=== PATIENT | female | born 1970 | race Caucasian/White ===

== ENCOUNTER 2024-05-06 08:26 | Emergency (ER) | payer OTHER, SELFPAY ==
[2024-05-06 08:30] VITALS: BP 123/75; PULSE 60; RESP 16; TEMP 36.9; O2SAT 100; BMI 31.4
--- NOTE | 2024-05-06 08:39 | XR_ITS ---
Examination: PA chest single view TECHNIQUE: Upright PA chest single view Exam date and time: May 06, 2024 at 0923 hours INDICATIONS: Shortness of breath beginning 7:00 AM this morning FINDINGS: Normal heart size Lungs are clear. The osseous structures are intact with mild thoracic dextroscoliosis IMPRESSION: No active disease
--- NOTE | 2024-05-06 08:39 | EKG_ITS ---
[facility] Test Date: 2024-05-06 Pat Name: THELMA COYLE Department: Room: - Gender: Female No Experience: : 1970 Requested By: Berta Perry ([facility]) Catherine Order Number: [id number] Reading MD: Berta Perry ([facility]) Catherine Measurements Intervals [place] Rate: 53 P: 28 ME: 156 QRS: 51 QRSD: 90 T: 43 QT: 433 QTc: 407 Interpretive Statements SINUS BRADYCARDIA Compared to ECG 02/06/2022 22:13:59 Sinus rhythm no longer present /store/S0/[id number]/ecg/[id number].pdf
--- NOTE | 2024-05-06 08:44 | PD.EDRME ---
Rapid Medical Screening Exam RME Arrival date/time: 05/06/24 08:26 54-year-old female presents to the emergency department with complaints of acute chest pain worsening with deep inspiration that began this a.m. upon awakening. I have greeted and performed a focused initial assessment of this patient. Initial appropriate labs ordered at this time. A comprehensive ED assessment and evaluation of the patient and analysis of all test and completion of medical decision making process will be conducted by additional ED provider. Chief Complaint: Chest Pain Time Seen by Provider: 05/06/24 08:33 Vital signs: Vital Signs Temperature 98.5 F 05/06/24 08:30 Pulse Rate 60 05/06/24 08:30 Respiratory Rate 16 05/06/24 08:30 Blood Pressure 123/75 05/06/24 08:30 Pulse Oximetry (%) 100 05/06/24 08:30 Oxygen Delivery Method Room Air 05/06/24 08:30
[2024-05-06 09:08] LABS: Basophils % (Auto) 1 % (0-2.5); Eosinophils # (Auto) 0.1 Thou/mm3 (0.0-0.5); Eosinophils % (Auto) 3 % (0-10); Hemoglobin 14.2 g/dL (12.0-16.0); Immature Granulocytes % (Auto) 0 % (0-0); Lymphocytes # (Auto) 0.9 Thou/mm3 (1.0-4.8); Lymphocytes % (Auto) 22 % (10-50); Mean Corpuscular Hemoglobin 29.1 pg (25.0-35.0); Mean Corpuscular Volume 88 fL (80-100); Monocytes # (Auto) 0.4 Thou/mm3 (0.0-0.8); Monocytes % (Auto) 10 % (0-12); Neutrophils # (Auto) 2.6 Thou/mm3 (1.8-7.7); Neutrophils % (Auto) 65 % (37-80); Nucleated Red Blood Cell % 0 /100 WBC (0); Platelet Count 223 Thou/mm3 (140-440); RDW Standard Deviation 44.3 fL (36.4-46.3); Red Blood Count 4.88 Miln/mm3 (4.00-5.20); White Blood Count 4.1 Thou/mm3 (3.6-11.0)
[2024-05-06 09:26] LABS: INR 0.9 (0.9-1.3); Partial Thromboplastin Time 26.4 Seconds (22.0-36.0); Prothrombin Time 10.4 Seconds (9.0-12.2)
[2024-05-06 10:09] LABS: Alanine Aminotransferase 16 U/L (10-49); Albumin, Serum 4.7 gm/dL (3.5-5.0); Alkaline Phosphatase 85 U/L (46-116); Anion Gap 6 (7-16); Aspartate Amino Transferase 22 U/L (0-34); BUN/Creatinine Ratio 14 Ratio (12-20); Blood Urea Nitrogen 14 mg/dL (9-23); Calcium 9.7 mg/dL (8.3-10.6); Calcium (Corrected) 9.7 mg/dL (8.5-10.1); Carbon Dioxide 27.3 mMol/L (20.0-31.0); Chloride 107 mMol/L (98-107); Estimated Creatinine Clearance 70.4 mL/min (>60); Globulin 2.3 gm/dL (2.3-3.5); Glucose 93 mg/dL (74-106); Lipase 33 U/L (12-53); Magnesium 2.2 mg/dL (1.6-2.6); Osmolality,Calculated 279 (275-295); Sodium 140 mMol/L (136-145); Troponin I < 0.002 ng/mL (0.0-0.045); eGFR > 60 See Note
--- NOTE | 2024-05-06 10:35 | PD.EDCHEST ---
ED Chest Pain RME/HPI General Chief Complaint: Chest Pain Stated Complaint: CX PAIN/PRESSURE, HARD CATCH BREATH X 2 HR; HX PVC Time Seen by Provider: 05/06/24 08:33 Arrival date/time: 05/06/24 08:26 Limitations: no limitations RME / HPI RME / HPI narrative: 05/06/24 08:26 54-year-old female presents to the emergency department with complaints of acute chest pain worsening with deep inspiration that began this a.m. upon awakening. I have greeted and performed a focused initial assessment of this patient. Initial appropriate labs ordered at this time. A comprehensive ED assessment and evaluation of the patient and analysis of all test and completion of medical decision making process will be conducted by additional ED provider. DR. 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 States her pain is worse with taking a deep breath or coughing. Denies fevers, chills, shortness of breath, abdominal pain, n/v/d, or urinary symptoms. 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 Related Data Home Medications ?Medication ?Instructions ?Recorded ?Confirmed levothyroxine 112 mcg capsule 112 mcg PO QDAY 11/25/17 04/03/22 lorazepam 1 mg tablet 0.5 mg PO HS PRN Sleep 11/25/17 04/03/22 propranolol 10 mg tablet 10 mg PO BID 11/25/17 04/03/22 magnesium chloride 71.5 mg 1 tab PO QDAY 05/12/18 04/03/22 (magnesium chloride) tablet,delayed release (Slow-Mag) multivitamin 1 tab PO QDAY 04/03/22 04/03/22 Allergies Allergy/AdvReac Type Severity Reaction Status Date / Time adhesive tape Allergy Intermediate Blister Verified 05/06/24 08:29 Penicillins Allergy Mild Rash Verified 05/06/24 08:29 Review of Systems Review of Systems Systems Reviewed: All systems reviewed, normal except as documented Past Medical History Past Medical History NEUROLOGIC: Positive Migraine CARDIAC: Positive Cardiac Disorders and Angina REPRODUCTIVE: Positive Previous Pregnancies MUSCULOSKELETAL: Positive Musculoskeletal Disorders, Arthritis and Fractures ENDOCRINE: Positive Endocrine Disorders (goiter) and Hypothyroidism PSYCHO/SOCIAL: Positive Anxiety OTHER HISTORY: Positive Chicken Pox and Cancer Family History FAMILY HISTORY: Positive Family Respiratory Disorders, Family Cardiac Disorders and Family Gastrointestinal Problems Surgical History SURGICAL: Positive Thyroidectomy, Lumpectomy and Section Social History SMOKING STATUS: Never smoker ED Exam General Limitations: Present no limitations General appearance: Present alert and in no apparent distress Head Head exam: Present atraumatic, normocephalic and normal inspection Eye Eye exam: Present normal appearance, PERRL and EOMI ENT ENT exam: Present normal exam, normal oropharynx and mucous membranes moist Neck Neck exam: Present normal inspection, full ROM and trachea midline Chest Chest inspection: Present normal inspection and symmetric chest wall rise Respiratory Respiratory exam: Present normal lung sounds bilaterally Cardiovascular Cardiovascular exam: Present regular rate, normal rhythm and normal heart sounds Abdominal Exam Abdominal exam: Present soft and normal bowel sounds Extremities Exam Extremities exam: Present normal inspection and full ROM Back Exam Back exam: Present normal inspection and full ROM Neurological Exam Neurological exam: Present alert, oriented X3 and CN II-XII intact Psychiatric Psychiatric exam: Present normal affect and normal mood Skin Skin exam: Present warm, dry, intact and normal color Course Course Course Narrative: chest xray ordered to help determine etiology of chest pain. Quality Measures none Orders Category Date Time Status Plant Director STAT Care 05/06/24 08:39 Completed EKG (ED ONLY) *Do not use* NOW Care 05/06/24 08:39 Completed EKG (ED Only) Stat Exams 05/06/24 08:39 Draft XR chest 1V portable Stat Exams 05/06/24 08:39 Completed B-Type Natriuretic Peptide Stat Lab 05/06/24 08:45 Completed CBC Stat Lab 05/06/24 08:45 Completed Comprehensive Metabolic Panel Stat Lab 05/06/24 08:45 Results Lipase Stat Lab 05/06/24 08:45 Results Magnesium Stat Lab 05/06/24 08:45 Results Partial Thromboplastin Time Stat Lab 05/06/24 08:45 Completed Prothrombin Time with INR Stat Lab 05/06/24 08:45 Completed Troponin I Stat Lab 05/06/24 08:45 Results Troponin I Stat Lab 05/06/24 10:26 Completed Aspirin Med 05/06/24 08:44 Discontinued 325 mg PO X1 ONE Reevaluation(s) Reevaluation #1: Delta trop is negative. Patient remains clinically stable throughout the emergency department visit. We reviewed all the results, analysis, and treatment plans. Patient is amenable to discharge. Strict return precautions were outlined. Patient was discharged in stable condition. Time: 11:45 Vital Signs Vital signs: Vital Signs Temperature 98.5 F 05/06/24 08:30 Pulse Rate 60 05/06/24 08:30 Respiratory Rate 16 05/06/24 08:30 Blood Pressure 123/75 05/06/24 08:30 Pulse Oximetry (%) 100 05/06/24 08:30 Oxygen Delivery Method Room Air 05/06/24 08:30 Pulse ox is 100% on room air which is adequate. Chest Pain MDM Narrative MDM Narrative:: Carmina Farrell am scribing for and in the presence of Dr. Ascencio. 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 ) Lab and/or radiology exams considered but not ordered:: None Interpretation Summary: Ordering Physician: Berta Perry Date of Service: 05/06/24 Procedure(s): XR chest 1V portable Accession Number(s): [id number] cc: Lavon Ruiz MD; Curt Singh MD; Berta Perry~ Examination: PA chest single view TECHNIQUE: Upright PA chest single view Exam date and time: May 06, 2024 at 0923 hours INDICATIONS: Shortness of breath beginning 7:00 AM this morning FINDINGS: Normal heart size Lungs are clear. The osseous structures are intact with mild thoracic dextroscoliosis IMPRESSION: No active disease Dictated By: Curt Singh MD Signed By: <Electronically signed by Curt Singh MD in OV> 05/06/24 1025 Medications / Prescriptions Medications or Prescriptions considered but not ordered:: None Medication administrations:: Medication Administration History Discontinued Medications Aspirin (Aspirin 325 Mg Tablet) 325 mg PO X1 ONE Stop: 05/06/24 08:45 Last Admin: 05/06/24 11:24 Dose: 325 mg Documented By: WILL See above Consultations Consultation(s) initiated? (list below): No Diagnosis Chest Pain Differential Diagnosis: stable angina, atypical chest pain, st elevation myocardial infarction, costochondritis, chest pain and biliary colic Most likely diagnosis given after review of the tests above:: Atypical chest pain Admission Indicated Admission indicated?: not indicated Admission Request Was there a request for admission?: No Disposition Plan Disposition Plan: Discharge Discharge Attestation Discharge Attestation: The patient and all family members were given an opportunity to ask questions and understood the discharge instructions. Discharge instructions specifically effects, indications for sooner follow up or return to the emergency department, and the expected course of current diagnosis. Patient condition: Stable Discharge Plan Plan Patient Disposition: HOME (Self Care) Prescriptions/Referrals Prescriptions/Med Rec: No Action multivitamin Tablet 1 tab PO QDAY propranolol 10 mg Tablet 10 mg PO BID lorazepam 1 mg Tablet 0.5 mg PO HS PRN (Reason: Sleep) levothyroxine 112 mcg Capsule 112 mcg PO QDAY Slow-Mag 71.5 mg Tablet,Delayed Release (Dr/Ec) 1 tab PO QDAY Referrals: Lavon Ruiz MD [Primary Care Provider] - In 1 week Problem List Clinical Impression: Atypical chest pain Patient/Caregiver Discharge Instructions Discharge Activity: activity as tolerated Education Materials: ED Chest Pain, Noncardiac Print Language: Arabic Stand Alone Forms: Vivienne Award Info., Patient Portal Info Letter
[2024-05-06 11:11] LABS: Troponin I < 0.002 ng/mL (0.0-0.045)
[2024-05-06] MEDS: Aspirin 325 MG TABLET PO (11:24)
[2024-05-06 12:20] LABS: B-Type Natriuretic Peptide < 20 pg/mL (0-100)
[2024-05-06 14:51] LABS: Bilirubin,Total 0.5 mg/dL (0.3-1.2)
== END 2024-05-06 11:57 | disposition home or self-care (01) ==
PROVIDERS: Nurse Practitioner Primary Care; Emergency Provider Emergency Medicine; PCP Internal Medicine
DX: R07.89 Other chest pain (principal); R06.02 Shortness of breath; R00.1 Bradycardia, unspecified
CPT/HCPCS: 36415; 71045; 80053; 83690; 83735; 83880; 84484; 85025; 85610; 85730; 93005; 99283; A9270

== ENCOUNTER 2024-08-11 09:54 | Outpatient (RCR) | payer OTHER, SELFPAY ==
--- NOTE | 2024-08-11 10:28 | CTCFLWUP_ITS ---
[facility] Shilo Serrano [place], [place] [address] FOLLOW-UP NOTE Date: 08/11/2024 MR#: [id number] Name: THELMA COYLE : 1970 Dx: C73 Malignant neoplasm of thyroid gland Identification. 54-year-old lady with papillary follicular thyroid cancer involving right and left thyroid lobes had bilateral thyroidectomy. Left 05/03/2018 4.6 x 2.7 x 2.3 cm papillary carcinoma follicular variant [id number] Right 06/24/2018 showing to palpate thyroid microcarcinoma 4 benign lymph nodes negative for mets. [id number] Thought to be intermediate risk and had 30 mCi of radioiodine and told by iodine scan 09/06/2018 showed no sign of mets. This is stage I based on her young under 53 years of age and no distant mets. Most recent ultrasound 03/04/2024 showed moderately enlarged cervical adenopathy with repeat recommended [address] also showed nonspecific cervical lymphadenopathy. Patient's most recent thyroglobulin was 0.1 on 02/10/2024. Her primary care physician Dr. Moss is adjusting her thyroid medications currently on 112 mcg according to patient. Still having chronic discomfort in her neck and swallowing which has been checked by both GI and ENT doctors in the past with no pathology noted. As I examine patient today there is mild neck adenopathy unchanged from before no oral lesions lungs clear. Assessment. 1. Stage I [id number] thyroidectomy over 6 years ago. Currently on Synthroid 112 mcg. No sign of recurrence clinically and radiographically thus far. 2. Will check thyroid antibody thyroglobulin and ultrasound before next visit in 3 months likely to be her last at [facility] since she is moving to [place] in November. All the records will be transferred to new doctors at that time. Cc: Lavon Ruiz MD Electronically signed by: Eldon Luz M.D. 08/11/2024 10:26 AM
== END 2024-08-12 23:59 | disposition home or self-care (01) ==
LOC: SCTC 09:54
PROVIDERS: PCP Internal Medicine; Referring Provider Internal Medicine; Visit Provider Radiology Therapeutic Radiology
DX: Z08 Encounter for follow-up examination after completed treatment for malignant neoplasm (principal); Z85.850 Personal history of malignant neoplasm of thyroid; E89.0 Postprocedural hypothyroidism; Z79.890 Hormone replacement therapy
CPT/HCPCS: 36591; 80053; 84443; 85025; 99213; A4216; J1642; G0463

== ENCOUNTER → 2024-08-22 | Outpatient (CLI) | payer OTHER, SELFPAY ==
--- NOTE | 2024-08-22 15:30 | XR_ITS ---
Examination: Thyroid sonography complete Technique: Grayscale sonographic images thyroid lobes Exam date and time: August 22, 2024 1502 hrs. Indications: Diagnosis malignant neoplasm thyroid thyroidectomy 2018 restaging Findings: Cyst in the right thyroid 5 7 5 mm Bilateral soft tissue neck lymph nodes, on the right side 2.4 cm, 1.6 cm, on the left side 1.8 cm, 1.6 cm Impression: Significant cervical lymphadenopathy Recommend CT soft tissue neck post intravenous contrast follow-up
[2024-08-26 17:50] LABS: Thyroglobulin Antibodies <1 IU/mL (< OR = 1)
[2024-08-29 07:07] LABS: Thyroglobulin <0.1 ng/mL
== END | disposition home or self-care (01) ==
LOC: CDIM 14:41 → SCTO 14:45
PROVIDERS: PCP Internal Medicine; Referring Provider Radiology Therapeutic Radiology; Visit Provider Radiology Therapeutic Radiology
DX: C73 Malignant neoplasm of thyroid gland (principal); R59.0 Localized enlarged lymph nodes
CPT/HCPCS: 36415; 76536; 84432; 86800

== ENCOUNTER → 2024-09-09 | Outpatient (CLI) | payer OTHER, SELFPAY ==
[2024-09-09 11:57] LABS: Alanine Aminotransferase 13 U/L (10-49); Albumin, Serum 4.3 gm/dL (3.5-5.0); Alkaline Phosphatase 72 U/L (46-116); Anion Gap 9 (7-16); Aspartate Amino Transferase 22 U/L (0-34); BUN/Creatinine Ratio 18 Ratio (12-20); Bilirubin,Total 0.5 mg/dL (0.3-1.2); Blood Urea Nitrogen 18 mg/dL (9-23); Calcium 9.9 mg/dL (8.3-10.6); Calcium (Corrected) 9.9 mg/dL (8.5-10.1); Carbon Dioxide 26.9 mMol/L (20.0-31.0); Cardiac Risk Estimate 2.7 RATIO (3.7-5.6); Chloride 107 mMol/L (98-107); Cholesterol 190 mg/dL (132-200); Globulin 2.2 gm/dL (2.3-3.5); Glucose 92 mg/dL (74-106); HDL Cholesterol 70 mg/dL (40-60); LDL Cholesterol,Calculated 106 mg/dL (0-130); Osmolality,Calculated 286 (275-295); Sodium 143 mMol/L (136-145); Total Protein 6.5 gm/dL (5.7-8.2); Triglycerides 69 mg/dL (30-150); eGFR > 60 See Note
== END | disposition home or self-care (01) ==
PROVIDERS: PCP Internal Medicine Cardiovascular Disease; Referring Provider Radiology Therapeutic Radiology; Visit Provider Radiology Therapeutic Radiology
DX: C73 Malignant neoplasm of thyroid gland (principal); E78.00 Pure hypercholesterolemia, unspecified; R07.89 Other chest pain
CPT/HCPCS: 36415; 80053; 80061

== ENCOUNTER → 2024-09-16 | Outpatient (CLI) | payer OTHER, SELFPAY ==
--- NOTE | 2024-09-16 14:30 | XR_ITS ---
Examination: CT soft tissue neck, with intravenous contrast. 2-D coronal reconstructions. 2-D sagittal reconstructions. Date and time of exam :September 16, 2024 1502 hours Comparison September 17, 2023 INDICATIONS: Diagnosis thyroid cancer 2018 postsurgical removal, restaging. CTDI: vol (mGy):10.7 DLP: (mGycm):314 Technique: 1.25 mm axial sections of the neck of the obtained. Coronal and sagittal reconstructions have been obtained. Intravenous contrast administered 50 cc Isovue-370. Low dose protocols were performed. One or more of the following dose reduction techniques were used; automated exposure control, adjustment of the mA and/or KV according to patient size, use of iterative reconstruction technique. Findings: Significant maxillary sinus disease Symmetrical nasopharynx oropharynx Left carotid triangle lymphadenopathy, the largest lymph node 9 mm, right carotid triangle lymphadenopathy, the largest lymph node 8 mm The larynx appears normal No encroachment upon the subglottic region No soft tissue mass in the thyroid bed Lung apices clear IMPRESSION: No interval recurrent tumor or metastatic disease
== END | disposition home or self-care (01) ==
PROVIDERS: Referring Provider Radiology Therapeutic Radiology; Visit Provider Radiology Therapeutic Radiology
DX: C73 Malignant neoplasm of thyroid gland (principal)
CPT/HCPCS: 70491; A4649; Q9967

== ENCOUNTER → 2024-11-29 | Outpatient (CLI) | payer OTHER, SELFPAY ==
[2024-11-29 10:58] LABS: Basophils % (Auto) 1 % (0-2.5); Eosinophils # (Auto) 0.1 Thou/mm3 (0.0-0.5); Eosinophils % (Auto) 3 % (0-10); Hematocrit 43.3 % (36.0-46.0); Hemoglobin 13.9 g/dL (12.0-16.0); Immature Granulocytes % (Auto) 0 % (0-0); Immature Granulocytes Auto 0.01 Thou/mm3 (0.00-0.00); Lymphocytes % (Auto) 24 % (10-50); Mean Corpuscular HGB Conc 32.1 g/dl (31.0-37.0); Mean Corpuscular Hemoglobin 29.3 pg (25.0-35.0); Mean Corpuscular Volume 91 fL (80-100); Monocytes # (Auto) 0.5 Thou/mm3 (0.0-0.8); Monocytes % (Auto) 11 % (0-12); Neutrophils # (Auto) 2.7 Thou/mm3 (1.8-7.7); Neutrophils % (Auto) 62 % (37-80); Nucleated Red Blood Cell % 0 /100 WBC (0); Platelet Count 249 Thou/mm3 (140-440); RDW Standard Deviation 45.9 fL (36.4-46.3); Red Blood Count 4.75 Miln/mm3 (4.00-5.20); White Blood Count 4.3 Thou/mm3 (3.6-11.0)
[2024-11-29 11:10] LABS: Alanine Aminotransferase 13 U/L (10-49); Albumin, Serum 4.3 gm/dL (3.5-5.0); Alkaline Phosphatase 68 U/L (46-116); Anion Gap 6 (7-16); Aspartate Amino Transferase 21 U/L (0-34); BUN/Creatinine Ratio 11 Ratio (12-20); Bilirubin,Total 0.5 mg/dL (0.3-1.2); Blood Urea Nitrogen 11 mg/dL (9-23); Calcium 9.1 mg/dL (8.3-10.6); Calcium (Corrected) 9.1 mg/dL (8.5-10.1); Carbon Dioxide 28.6 mMol/L (20.0-31.0); Cardiac Risk Estimate 2.6 RATIO (3.7-5.6); Chloride 107 mMol/L (98-107); Cholesterol 190 mg/dL (132-200); Free T4 (Free Thyroxine) 1.49 ng/dL (0.89-1.76); Globulin 2.1 gm/dL (2.3-3.5); Glucose 95 mg/dL (74-106); HDL Cholesterol 73 mg/dL (40-60); LDL Cholesterol,Calculated 103 mg/dL (0-130); Osmolality,Calculated 282 (275-295); Potassium 4.3 mMol/L (3.4-5.1); Sodium 142 mMol/L (136-145); Thyroid Stimulating Hormone 3.97 uIU/mL (0.55-4.78); Total Protein 6.4 gm/dL (5.7-8.2); Triglycerides 72 mg/dL (30-150); eGFR > 60 See Note
[2024-11-29 11:12] LABS: Glucose Estimated Average 103 mg/dL (80-131); Hemoglobin A1C 5.2 % Hgb (4.8-6.0)
[2024-11-29 11:24] LABS: Vitamin D 25 Hydroxy Total 44.1 ng/mL (7.3-40.2)
== END | disposition home or self-care (01) ==
LOC: COPL 09:49
PROVIDERS: PCP Internal Medicine; Referring Provider Internal Medicine; Visit Provider Internal Medicine
DX: Z00.00 Encounter for general adult medical examination without abnormal findings (principal); E55.9 Vitamin D deficiency, unspecified
CPT/HCPCS: 36415; 80053; 80061; 82306; 83036; 84439; 84443; 85025